=== PATIENT | male | born 1985 | race Caucasian/White ===

== ENCOUNTER 2020-02-28 12:31 | Inpatient (IN) | payer OTHER ==
[~2020-02-28] VITALS: Ht 182.9 cm; Wt 83.5 kg
[2020-02-28 15:15] VITALS: BP 134/78
[2020-02-28] MEDS: SENNA 187 MG TABLET PO SCH (20:02)
[2020-02-28] MEDS: DOCUSATE SODIUM 100 MG CAPSULE PO SCH (20:02)
[2020-02-28] MEDS: ZINC OXIDE 20% 30 GM OINTMENT TP SCH (20:04)
[2020-02-28] MEDS: MELATONIN 3 MG TABLET PO PRN (20:04)
[2020-02-29 00:28] VITALS: BP 127/68
[2020-02-29 07:00] VITALS: BP 120/76
[2020-02-29] MEDS: MULTIVITAMINS WITH MINERALS, THERAPEUTIC TABLET PO SCH (08:53)
[2020-02-29] MEDS: DOCUSATE SODIUM 100 MG CAPSULE PO SCH ×2 (08:53→20:14)
[2020-02-29] MEDS: ZINC OXIDE 20% 30 GM OINTMENT TP SCH ×2 (08:53→20:14)
[2020-02-29 09:09] LABS: BASOPHILS % (AUTO) 0.9 % (0.0-2.0); EOSINOPHILS % (AUTO) 2.1 % (1.0-6.0); HEMATOCRIT 34.4 % (41-53); HEMOGLOBIN 11.6 g/dL (13.5-17.5); LYMPHOCYTES # (AUTO) 2.1 K/uL (1.0-4.8); LYMPHOCYTES % (AUTO) 27.3 % (22.0-44.0); MEAN CORPUSCULAR HEMOGLOBIN 33.1 pg (26.0-34.0); MEAN CORPUSCULAR HGB CONC 33.6 G/dL (31.0-37.0); MEAN CORPUSCULAR VOLUME 99 fL (80-100); MONOCYTES # (AUTO) 0.7 K/uL (0.1-1.0); MONOCYTES % (AUTO) 8.8 % (2.0-9.0); NEUTROPHILS # (AUTO) 4.7 K/uL (1.8-7.7); NEUTROPHILS % (AUTO) 60.9 % (40.0-70.0); PLATELET COUNT (AUTO) 368 K/uL (150-450); RED BLOOD CELL COUNT(AUTO) 3.49 MIL/uL (4.50-5.90); RED CELL DISTRIBUTION WIDTH 18.3 % (11.5-14.5)
[2020-02-29 09:40] LABS: ALANINE AMINOTRANSFERASE 296 U/L (12-78); ALBUMIN 2.8 g/dL (3.4-5.0); ALKALINE PHOSPHATASE 127 U/L (46-116); ANION GAP 8 mmol/L (8-16); ASPARTATE AMINOTRANSFERASE 225 U/L (15-37); BILIRUBIN,TOTAL 13.6 mg/dL (0.1-1.0); CARBON DIOXIDE 26 mmol/L (22-29); CHLORIDE 101 mmol/L (98-107); GLOMERULAR FILTR. RATE CALC > 60 mL/min (>60); GLUCOSE,RANDOM 143 mg/dL (70-110); POTASSIUM 4.1 mmol/L (3.5-5.1); SODIUM SERUM 135 mmol/L (136-145); TOTAL PROTEIN, SERUM 7.3 g/dL (6.4-8.2); UREA NITROGEN, BLOOD 15 mg/dL (7-18)
[2020-02-29 15:05] VITALS: BP 129/77
[2020-02-29] MEDS: MELATONIN 3 MG TABLET PO PRN (20:14)
[2020-02-29] MEDS: SENNA 187 MG TABLET PO SCH (20:14)
[2020-03-01] VITALS: BP 114/62
[2020-03-01 07:05] VITALS: BP 132/73
[2020-03-01] MEDS: ZINC OXIDE 20% 30 GM OINTMENT TP SCH ×2 (08:14→20:23)
[2020-03-01] MEDS: DOCUSATE SODIUM 100 MG CAPSULE PO SCH ×2 (08:14→20:23)
[2020-03-01] MEDS: MULTIVITAMINS WITH MINERALS, THERAPEUTIC TABLET PO SCH (08:14)
[2020-03-01 15:10] VITALS: BP 118/64
[2020-03-01] MEDS: MELATONIN 3 MG TABLET PO PRN (20:23)
[2020-03-01] MEDS: SENNA 187 MG TABLET PO SCH (20:23)
[2020-03-02 06:12] VITALS: BP 131/69
[2020-03-02 08:58] VITALS: BP 120/68
[2020-03-02] MEDS: ZINC OXIDE 20% 30 GM OINTMENT TP SCH (09:00)
[2020-03-02] MEDS: MULTIVITAMINS WITH MINERALS, THERAPEUTIC TABLET PO SCH (10:01)
[2020-03-02] MEDS: DOCUSATE SODIUM 100 MG CAPSULE PO SCH ×2 (10:01→20:45)
[2020-03-02] MEDS ORDERED: ZINC OXIDE 20% 30 GM OINTMENT TP PRN (12:15)
[2020-03-02 15:00] VITALS: BP 127/72
[2020-03-02 20:00] VITALS: BP_SYST 120; BP_SYST 135; BP_DIAS 56; BP_DIAS 69
[2020-03-02] MEDS: PRAZOSIN HCL 1 MG CAPSULE PO SCH (20:45)
[2020-03-02] MEDS: SENNA 187 MG TABLET PO SCH (20:45)
[2020-03-03 01:00] VITALS: BP 139/70
[2020-03-03 09:18] VITALS: BP 114/63
[2020-03-03] MEDS: ESCITALOPRAM OXALATE 10 MG TABLET PO SCH (09:42)
[2020-03-03] MEDS: DOCUSATE SODIUM 100 MG CAPSULE PO SCH ×2 (09:42→20:09)
[2020-03-03] MEDS: MULTIVITAMINS WITH MINERALS, THERAPEUTIC TABLET PO SCH (09:42)
[2020-03-03 15:15] VITALS: BP 116/71
[2020-03-03] MEDS: SENNA 187 MG TABLET PO SCH (20:09)
[2020-03-03] MEDS: PRAZOSIN HCL 1 MG CAPSULE PO SCH (20:10)
[2020-03-04] VITALS: BP 134/71
[2020-03-04] MEDS ORDERED: DOCU-275 PO (04:06)
[2020-03-04] MEDS ORDERED: MULT-1239 PO (04:06)
[2020-03-04] MEDS ORDERED: ESCI-8 PO (04:06)
[2020-03-04] MEDS ORDERED: PRAZ1 PO (04:06)
[2020-03-04 08:08] VITALS: BP 115/68
[2020-03-04] MEDS: MULTIVITAMINS WITH MINERALS, THERAPEUTIC TABLET PO SCH (08:37)
[2020-03-04] MEDS: DOCUSATE SODIUM 100 MG CAPSULE PO SCH ×2 (08:37→20:25)
[2020-03-04] MEDS: ESCITALOPRAM OXALATE 10 MG TABLET PO SCH (08:37)
[2020-03-04 15:36] VITALS: BP 115/65
[2020-03-04] MEDS: PRAZOSIN HCL 1 MG CAPSULE PO SCH (20:22)
[2020-03-04] MEDS: SENNA 187 MG TABLET PO SCH (20:26)
[2020-03-05] VITALS: BP 135/65
[2020-03-05 07:25] LABS: ALANINE AMINOTRANSFERASE 244 U/L (12-78); ALBUMIN 2.8 g/dL (3.4-5.0); ALKALINE PHOSPHATASE 111 U/L (46-116); ANION GAP 7 mmol/L (8-16); ASPARTATE AMINOTRANSFERASE 168 U/L (15-37); BILIRUBIN,TOTAL 5.8 mg/dL (0.1-1.0); CALCIUM, TOTAL 9.3 mg/dL (8.8-10.5); CARBON DIOXIDE 27 mmol/L (22-29); CHLORIDE 103 mmol/L (98-107); CREATININE 0.97 mg/dL (0.60-1.30); GLOMERULAR FILTR. RATE CALC > 60 mL/min (>60); GLUCOSE,RANDOM 99 mg/dL (70-110); POTASSIUM 4.2 mmol/L (3.5-5.1); SODIUM SERUM 137 mmol/L (136-145); TOTAL PROTEIN, SERUM 6.7 g/dL (6.4-8.2); UREA NITROGEN, BLOOD 17 mg/dL (7-18)
[2020-03-05 07:33] VITALS: BP 128/66
[2020-03-05] MEDS: MULTIVITAMINS WITH MINERALS, THERAPEUTIC TABLET PO SCH (07:59)
[2020-03-05] MEDS: ESCITALOPRAM OXALATE 10 MG TABLET PO SCH (07:59)
[2020-03-05] MEDS: DOCUSATE SODIUM 100 MG CAPSULE PO SCH ×2 (08:03→20:34)
[2020-03-05 15:54] VITALS: BP 141/80
[2020-03-05] MEDS: SENNA 187 MG TABLET PO SCH (20:34)
[2020-03-05] MEDS: PRAZOSIN HCL 1 MG CAPSULE PO SCH (20:34)
[2020-03-05 23:19] VITALS: BP 130/70
[2020-03-06 07:20] VITALS: BP 121/78
[2020-03-06] MEDS: DOCUSATE SODIUM 100 MG CAPSULE PO SCH ×2 (08:22→20:18)
[2020-03-06] MEDS: ESCITALOPRAM OXALATE 10 MG TABLET PO SCH (08:22)
[2020-03-06] MEDS: MULTIVITAMINS WITH MINERALS, THERAPEUTIC TABLET PO SCH (08:22)
[2020-03-06 15:10] VITALS: BP 131/69
[2020-03-06] MEDS: PRAZOSIN HCL 1 MG CAPSULE PO SCH (20:15)
[2020-03-06] MEDS: SENNA 187 MG TABLET PO SCH (20:16)
[2020-03-07 06:00] VITALS: BP 119/77
[2020-03-07] MEDS: ESCITALOPRAM OXALATE 10 MG TABLET PO SCH (08:06)
[2020-03-07] MEDS: MULTIVITAMINS WITH MINERALS, THERAPEUTIC TABLET PO SCH (08:06)
[2020-03-07] MEDS: DOCUSATE SODIUM 100 MG CAPSULE PO SCH ×2 (08:06→20:10)
[2020-03-07 09:10] VITALS: BP 122/72
[2020-03-07 15:10] VITALS: BP 122/67
[2020-03-07] MEDS: PRAZOSIN HCL 1 MG CAPSULE PO SCH (20:10)
[2020-03-07] MEDS: SENNA 187 MG TABLET PO SCH (20:12)
[2020-03-08 06:01] VITALS: BP 132/84
[2020-03-08 07:55] VITALS: BP 119/74
[2020-03-08] MEDS: MULTIVITAMINS WITH MINERALS, THERAPEUTIC TABLET PO SCH (08:14)
[2020-03-08] MEDS: ESCITALOPRAM OXALATE 10 MG TABLET PO SCH (08:14)
[2020-03-08] MEDS: DOCUSATE SODIUM 100 MG CAPSULE PO SCH ×2 (08:14→20:03)
[2020-03-08] MEDS: LIDOCAINE 5% TRANSDERMAL PATCH TD SCH (13:02)
[2020-03-08 15:41] VITALS: BP 132/72
[2020-03-08] MEDS: PRAZOSIN HCL 1 MG CAPSULE PO SCH (20:02)
[2020-03-08] MEDS: -LIDODERM PATCH NOTE- MISC SCH (20:03)
[2020-03-08] MEDS: SENNA 187 MG TABLET PO SCH (20:03)
[2020-03-08] MEDS ORDERED: LIDO700A15 TP (23:48)
[2020-03-09 05:37] VITALS: BP 126/67
[2020-03-09] MEDS: MULTIVITAMINS WITH MINERALS, THERAPEUTIC TABLET PO SCH (07:57)
[2020-03-09] MEDS: ESCITALOPRAM OXALATE 10 MG TABLET PO SCH (07:57)
[2020-03-09] MEDS: DOCUSATE SODIUM 100 MG CAPSULE PO SCH ×2 (07:57→20:03)
[2020-03-09] MEDS: LIDOCAINE 5% TRANSDERMAL PATCH TD SCH (07:58)
[2020-03-09 08:10] VITALS: BP 122/71
[2020-03-09 15:40] VITALS: BP 128/77
[2020-03-09] MEDS: SENNA 187 MG TABLET PO SCH (20:03)
[2020-03-09] MEDS: -LIDODERM PATCH NOTE- MISC SCH (20:03)
[2020-03-09] MEDS: PRAZOSIN HCL 1 MG CAPSULE PO SCH (20:03)
[2020-03-10 06:00] VITALS: BP 140/68
[2020-03-10] MEDS: DOCUSATE SODIUM 100 MG CAPSULE PO SCH ×2 (09:19→20:42)
[2020-03-10] MEDS: LIDOCAINE 5% TRANSDERMAL PATCH TD SCH (09:19)
[2020-03-10] MEDS: MULTIVITAMINS WITH MINERALS, THERAPEUTIC TABLET PO SCH (09:19)
[2020-03-10] MEDS: ESCITALOPRAM OXALATE 10 MG TABLET PO SCH (09:19)
[2020-03-10 09:43] VITALS: BP 116/64
[2020-03-10 15:18] VITALS: BP 124/67
[2020-03-10 20:40] VITALS: BP 129/68
[2020-03-10] MEDS: -LIDODERM PATCH NOTE- MISC SCH (20:42)
[2020-03-10] MEDS: SENNA 187 MG TABLET PO SCH (20:42)
[2020-03-10] MEDS: PRAZOSIN HCL 1 MG CAPSULE PO SCH (20:42)
[2020-03-11 00:16] VITALS: BP 125/70
[2020-03-11 08:00] VITALS: BP 125/73
[2020-03-11] MEDS: MULTIVITAMINS WITH MINERALS, THERAPEUTIC TABLET PO SCH (08:05)
[2020-03-11] MEDS: ESCITALOPRAM OXALATE 10 MG TABLET PO SCH (08:06)
[2020-03-11] MEDS: LIDOCAINE 5% TRANSDERMAL PATCH TD SCH (08:06)
[2020-03-11] MEDS: DOCUSATE SODIUM 100 MG CAPSULE PO SCH ×2 (08:06→20:34)
[2020-03-11 15:23] VITALS: BP 122/76
[2020-03-11 20:32] VITALS: BP 132/77
[2020-03-11] MEDS: SENNA 187 MG TABLET PO SCH (20:34)
[2020-03-11] MEDS: PRAZOSIN HCL 1 MG CAPSULE PO SCH (20:34)
[2020-03-11] MEDS: -LIDODERM PATCH NOTE- MISC SCH (22:06)
[2020-03-12 06:00] VITALS: BP 117/71
[2020-03-12 07:30] VITALS: BP 123/72
[2020-03-12] MEDS: ESCITALOPRAM OXALATE 10 MG TABLET PO SCH (08:03)
[2020-03-12] MEDS: MULTIVITAMINS WITH MINERALS, THERAPEUTIC TABLET PO SCH (08:03)
[2020-03-12] MEDS: DOCUSATE SODIUM 100 MG CAPSULE PO SCH (08:03)
[2020-03-12] MEDS: LIDOCAINE 5% TRANSDERMAL PATCH TD SCH (08:04)
== END 2020-03-12 09:00 | disposition home or self-care (01) | DRG 947 ==
LOC: 2WR 15:10
PROVIDERS: ADMIT Physical Medicine & Rehabilitation; ATTEND Physical Medicine & Rehabilitation
DX: R53.81 Other malaise (principal); J18.9 Pneumonia, unspecified organism; K72.90 Hepatic failure, unspecified without coma; F32.9 Major depressive disorder, single episode, unspecified; F43.10 Post-traumatic stress disorder, unspecified; G89.29 Other chronic pain; M41.9 Scoliosis, unspecified; Z81.8 Family history of other mental and behavioral disorders; M25.562 Pain in left knee
CPT/HCPCS: 87081; 92507; 92523; 97110; 97112; 97116; 97140; 97162; 97166; 97530; 97535; 99366